=== PATIENT | female | born 1985 | race Caucasian/White ===

== ENCOUNTER → 2019-09-14 08:15 | Outpatient (CLI) | payer OTHER, SELFPAY ==
--- NOTE | ~2019-09-14 | MMUS_ITS ---
EXAMINATION: MM diagnostic olivia RT w lillian, US breast RT limited HISTORY: Palpable lump in the subareolar aspect of the right breast, family history of breast cancer in her mother at age 46. TECHNIQUE: Craniocaudal, mediolateral, and mediolateral oblique 3-D tomosynthesis images of the right breast were performed and synthetic 2-D images were generated. CAD analysis was submitted and interp reted. High resolution limited right breast ultrasound was performed. COMPARISON: 08/28/2017 BREAST PARENCHYMAL COMPOSITION: The breasts are almost entirely fatty. FINDINGS: MAMMOGRAPHIC FINDINGS: There is no evidence of suspicious mass, calcification, or architectural distortion to suggest malig tamar. There has been no suspicious interval change. No mammographic correlate is identified for the reported palpable abnormality of the right breast. ULTRASOUND: There is an 8 mm x 4 mm oval, circumscribed, parallel, hypoechoic mass with posterior acoustic enhanc ement and no internal vascularity associated with the nipple corresponding to the palpable abnormalit y of concern. IMPRESSION: 1. Likely resolving infection of the nipple corresponding to the palpable abnormality of concern. 2. Recommend follow-up targeted ultrasound in one month to evaluate for change. If persistent or enla rging at that time, would recommend ultrasound-guided biopsy. If resolved or absent, would then recom mend screening mammography beginning at age 37 due to her mother's history of breast cancer. BI-RADS category 4, suspicious findings. Reviewed, dictated and finalized at location A. IMPRESSION: 1. Likely resolving infection of the nipple corresponding to the palpable abnor mality of concern. 2. Recommend follow-up targeted ultrasound in one month to evaluate for change. If persistent or enlarging at that time, would recommend ultrasound-guided bio psy. If resolved or absent, would then recommend screening mammography beginnin g at age 37 due to her mother's history of breast cancer. BI-RADS category 4, suspicious findings. IMPRESSION: 1. Likely resolving infection of the nipple corresponding to the palpable abnor mality of concern. 2. Recommend follow-up targeted ultrasound in one month to evaluate for change. If persistent or enlarging at that time, would recommend ultrasound-guided bio psy. If resolved or absent, would then recommend screening mammography beginnin adi at age 37 due to her mother's history of breast cancer. BI-RADS category 4, suspicious findings.
== END ==
PROVIDERS: PCP Nurse Practitioner Adult Health; Visit Provider Obstetrics & Gynecology
DX: N63.10 Unspecified lump in the right breast, unspecified quadrant (principal); R92.8 Other abnormal and inconclusive findings on diagnostic imaging of breast
CPT/HCPCS: 76642; 77061; 77065; G0279

== ENCOUNTER → 2019-10-17 08:31 | Outpatient (CLI) | payer OTHER, SELFPAY ==
--- NOTE | ~2019-10-17 | US_ITS ---
US breast RT limited 10/17/2019 08:50 Indication: History of recent right breast infection. Follow-up mass. Procedure: High-resolution Limited ultrasound of the right breast Comparison: Ultrasound dated 09/14/2019 Findings: Interval resolution of hypoechoic 8mm mass of the right breast in the subareolar location. There is mildly prominent ducts. Impression: 1: Interval resolution of oval hypoechoic 8 mm right breast mass, consistent with resolution of infec tion. No persistent sonographic abnormalities. BI-RADS CATEGORY 1 - NEGATIVE Reviewed, dictated and finalized at location A. Impression: 1: Interval resolution of oval hypoechoic 8 mm right breast mass, consistent wi th resolution of infection. No persistent sonographic abnormalities. BI-RADS CATEGORY 1 - NEGATIVE
== END ==
PROVIDERS: Visit Provider Obstetrics & Gynecology
DX: N63.10 Unspecified lump in the right breast, unspecified quadrant (principal)
CPT/HCPCS: 76642

== ENCOUNTER 2020-06-14 18:29 | Emergency (ER) | payer OTHER, SELFPAY ==
[2020-06-14 18:57] VITALS: BP 147/83; PULSE 79; RESP 17; TEMP 36.2; O2SAT 100
[2020-06-14] MEDS: DOXYCYCLINE HYCLATE 100 MG TABLET PO (20:03)
--- NOTE | 2020-06-14 20:31 | ED.GENADULT ---
HPI - General Adult General Chief complaint: Skin/Abscess/Foreign Body Stated complaint: boil lower abd Time Seen by Provider: 06/14/20 18:34 Source: patient Mode of arrival: ambulatory Limitations: no limitations History of Present Illness HPI narrative: Patient is a 34-year-old female who presents to emergency department for evaluation of abscess to the left lower abdomen patient notes history of staph infections and abscesses she states this began Thursday that the abscess drained significant amount of drainage but now has surrounding erythema patient notes aching pain worse with touch denies any fever chills nausea vomiting Related Data Home Medications Medication Instructions Recorded Confirmed atorvastatin 10 mg tablet 10 mg PO DAILY 01/26/19 01/30/20 lisinopril 20 mg tablet 20 mg PO DAILY 01/26/19 01/30/20 multivitamin 1 tablet PO DAILY 01/26/19 01/30/20 norethindrone (contraceptive) 0.35 0.35 mg PO DAILY 01/26/19 01/30/20 mg tablet omeprazole 20 mg capsule,delayed 20 mg PO DAILY 01/26/19 01/30/20 release Bifidobacterium infantis 4 mg 4 mg PO DAILY 01/31/19 01/30/20 capsule cranberry 400 mg capsule 400 mg PO DAILY 01/30/20 01/30/20 Allergies Allergy/AdvReac Type Severity Reaction Status Date / Time Penicillins Allergy Unknown Swelling Verified 01/30/20 09:59 Review of Systems Review of Systems: All systems reviewed & are unremarkable except as noted in HPI and below PMFSH Past Medical History Medical History 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 Body mass index (BMI) 45.0-49.9, adult (01/20/18) Essential hypertension Former smoker Gastroesophageal reflux disease Ground glass opacity present on imaging of lung Pleurisy Family History Family History Father Diabetes mellitus Cerebrovascular accident Grandparent Family history of lung cancer Mother Family history of malignant neoplasm of breast Social History Social History Years smoked: 16 Smoking status: Former smoker Tobacco type: cigarettes Second hand tobacco smoke exposure: No Smoking end date: 03/09/17 Alcohol intake: never Substance use: never Gender identity (if verbalized by the patient): Female Exam Narrative: Exam Narrative: GENERAL: Well-appearing, obese, and in no acute distress. HEAD: Normocephalic, atraumatic. EYES: PERRLA and EOMI. ENT: Nares clear, no rhinorrhea or epistaxis. Mucous membranes moist. CHEST: Clear to auscultation. No respiratory distress. No wheezes rales or rhonchi HEART: Regular rate and rhythm. No murmur heard. Normal peripheral pulses. ABDOMEN: Soft, nontender, nondistended EXTREMITIES: Normal range of motion. No edema. SKIN: Warm, dry, no rash. Patient with red tender erythematous area to the left lower abdomen there is a central opening no drainage coming from the lesion other than a small amount of purulence the lesion does not have a large underlying fluctuant palpable mass. NEURO: No focal deficits. Alert and oriented x3. PSYCH: Normal mood and affect. Course Course Emergency Course: Patient in the room no distress felt appropriate for outpatient reevaluation and wound culture obtained patient will douglas the lesion to watch for progression or improvement patient is afebrile nontoxic-appearing no distress. Patient agrees to follow with primary care and has been given reasons to return and agrees to do so if symptoms worsen. It is felt that the abscess is drained and she now is experiencing cellulitis was given her first dose of antibiotic in the emergency department Vital Signs Vital signs: Vital Signs Temperature 97.2 F L 06/14/20 18:57 Pulse Rate 79 06/14/20 18:57 Respiratory Rate 17 06/14/20 18:57 Blood Pressure 147/83 H 06/14/20 18:57 Pulse Oximetry 100 06/14/20 18:57 Temperature 97.
[2020-06-14 20:45] VITALS: BP 134/74; PULSE 74; RESP 16; O2SAT 100
== END 2020-06-14 20:45 | disposition home or self-care (01) ==
PROVIDERS: Emergency Provider Emergency Medicine; PCP Nurse Practitioner Adult Health
DX: L02.211 Cutaneous abscess of abdominal wall (principal); K22.70 Barrett's esophagus without dysplasia; I10 Essential (primary) hypertension; K21.9 Gastro-esophageal reflux disease without esophagitis; Z87.891 Personal history of nicotine dependence
CPT/HCPCS: 87070; 87075; 87205; 99283; A9270

== ENCOUNTER 2020-10-22 07:36 | Emergency (ER) | payer OTHER, SELFPAY ==
--- NOTE | ~2020-10-22 | CT_ITS ---
EXAMINATION: CT brain wo con DATE: 10/22/2020 08:23 INDICATION: Headache. TECHNIQUE: Computed tomography (CT) of the head was performed without intravenous contrast. The mA wa s adjusted according to patient size. Iterative reconstruction technique was employed. The dose-lengt h product was 605.33 mGy-cm. COMPARISON: None FINDINGS: There is no intracranial hemorrhage, acute infarction, or abnormal intracranial mass lesion . The ventricles are normal in size. The paranasal sinuses are clear. The orbits are normal. The mast oid air cells are normal. IMPRESSION: 1. Normal brain. Reviewed, dictated and finalized at location B. IMPRESSION: 1. Normal brain.
[2020-10-22 07:40] VITALS: BP 147/90; PULSE 80; RESP 16; TEMP 36.7; O2SAT 99
[2020-10-22] MEDS: KETOROLAC 30 MG/ML VIAL (*BKC) IV PUSH (08:29)
[2020-10-22] MEDS: METOCLOPRAMIDE HCL INJ 10 MG/2 ML VIAL IV PUSH (08:29)
[2020-10-22] MEDS: diphenhydrAMINE HCl INJ 50 MG/ML VIAL 25 MG IV PUSH (08:29)
--- NOTE | 2020-10-22 09:44 | ED.HA ---
HPI - Headache General Chief Complaint: Headache Stated Complaint: HIGH BLOOD PRESSURE Time Seen by Provider: 10/22/20 07:50 Source: patient and family Mode of arrival: ambulatory Limitations: no limitations History of Present Illness HPI Narrative: Patient is 35 years old white female came to the emergency room with her father because of left side headache, dull aching, started 2 to 3 weeks ago. Lately noticed that her blood pressure is high. Patient was seen her family physician 3 days ago and losartan increased from 25 mg once a day to 50 mg once a day. Patient started on phentermine for weight loss 3 months ago, her brother 4 weeks ago. Severely stressed and depressed. Patient been using Excedrin and Tylenol. Patient report the headache comes and goes but more coming down going. Patient denies any fever, chills, coughing, chest pain or shortness of breath. Patient got nauseated last night. Patient is not vaccinated for COVID-19. Patient denies any focal neuro deficit Related Data Home Medications Medication Instructions Recorded Confirmed Bifidobacterium infantis [Align] 10/22/20 atorvastatin 10 mg PO DAILY 10/22/20 fluticasone propion-salmeterol 2 puff INHALATION BID 10/22/20 [Advair HFA] losartan 25 mg PO DAILY 10/22/20 nrbiohorosff-ovnc-kfjhx acid tablet PO 10/22/20 [Centrum] norgestimate-ethinyl estradiol 1 tablet PO DAILY 10/22/20 [Armida] omeprazole 40 mg PO DAILY 10/22/20 phentermine 37.5 mg PO DAILY 10/22/20 vitamin B complex [B Complex] cap 10/22/20 Allergies Allergy/AdvReac Type Severity Reaction Status Date / Time Penicillins Allergy Unknown Swelling Verified 10/22/20 07:48 Review of Systems Review of Systems: CONSTITUTIONAL: Denies fever, chills, or sweats. EYES: Denies visual changes, redness, or discharge. ENT: Denies rhinorrhea, congestion, sore throat, or otalgia. CARDIOVASCULAR: Denies chest pain, palpitations, or edema. RESPIRATORY: Denies cough or dyspnea. GASTROINTESTINAL: Denies abdominal pain, nausea, vomiting, or diarrhea. GENITOURINARY: Denies dysuria or hematuria. SKIN: Denies rash or itching. MUSCULOSKELETAL: Denies back pain, joint pain, or myalgia. NEUROLOGIC: Denies headache, numbness, or weakness. PSYCHIATRIC: Denies anxiety or depression. 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 Body mass index (BMI) 45.0-49.9, adult (01/20/18) Essential hypertension Former smoker Gastroesophageal reflux disease Ground glass opacity present on imaging of lung Pleurisy Family History Family History Father Diabetes mellitus Cerebrovascular accident Grandparent Family history of lung cancer Mother Family history of malignant neoplasm of breast Social History Social History Years smoked: 16 Smoking status: Former smoker Tobacco type: cigarettes Second hand tobacco smoke exposure: No Smoking end date: 03/09/17 Alcohol intake: never Substance use: never Gender identity (if verbalized by the patient): Female Exam Narrative: General appearance: Well-developed, well-nourished Skin: Normal color Head: Normocephalic, nontraumatic Eyes: Clear conjunctiva ENT: Oropharynx normal, ears normal, nose normal Neck: Supple, nontender Chest and respiratory: Airway patent, no respiratory distress, no accessory muscle use Heart: Regular rate/rhythm Abdomen: Soft, nontender, no organomegaly, quiet bowel sounds Vascular: Normal peripheral pulses, normal capillary refill. Musculoskeletal: Normal range of motion, nontender back Neurologic: Alert and oriented ?3, [employer] is normal as tested, no gross motor deficit
[2020-10-22] MEDS: LORazepam INJ (*CRX) 2 MG/ML VIAL 0.5 MG IV PUSH (09:54)
[2020-10-22 10:34] LABS: Add Urine Microscopic? YES; Appearance Urine Clear (Clear); Bilirubin Urine Negative (Negative); Blood Urine 1+ (Negative); Color Urine Yellow (Yellow); Glucose Urine UA Negative (Negative); Ketones Urine Negative (Negative); Leukocyte Esterase Ur Negative LEU/UL (Negative); Mucus Urine Rare /lpf; Nitrate Urine Negative (Negative); Protein Urine Negative (Negative); RBC Urine 0-2 /hpf (0-2); Specific Grav Ur 1.005 (1.001-1.035); Squamous Epithelial Cell Urine Rare /hpf (Few); Urobilinogen Urine Negative mg/dL (<2.0); WBC Urine 0-3 /hpf
[2020-10-22 11:37] VITALS: BP 144/68; PULSE 88; RESP 16; O2SAT 100
== END 2020-10-22 11:39 | disposition home or self-care (01) ==
PROVIDERS: Emergency Provider Emergency Medicine; PCP Nurse Practitioner Adult Health
DX: R51.9 Headache, unspecified (principal); K22.70 Barrett's esophagus without dysplasia; I10 Essential (primary) hypertension; K21.9 Gastro-esophageal reflux disease without esophagitis; Z87.891 Personal history of nicotine dependence
CPT/HCPCS: 70450; 81001; 81025; 96374; 96375; 99284; J1200; J1885; J2060; J2765

== ENCOUNTER 2020-11-07 07:26 | Emergency (ER) | payer OTHER, SELFPAY ==
--- NOTE | ~2020-11-07 | US_ITS ---
EXAMINATION: US venous doppler LE RT DATE: 11/07/2020 08:37 INDICATION: Right calf pain TECHNIQUE: Grayscale ultrasound images without and with compression and Doppler ultrasound images of the right lower extremity veins were obtained. COMPARISON: None. FINDINGS: Noncompressible deep venous spondylosis in the mid portion of one of the paired right peroneal veins. The visualized portions of right common femoral vein, profunda (deep) femoral vein, femoral vein, po pliteal vein, peroneal trunk, posterior tibial veins, peroneal veins, gastrocnemius vein and greater saphenous vein outflow are patent. IMPRESSION: 1. Right sided rnqkj-tev-xtlg deep venous thrombosis in the midportion of one of the paired right pe roneal veins. Reviewed, dictated and finalized at location A. IMPRESSION: 1. Right sided omdkr-ftq-sbdh deep venous thrombosis in the midportion of one of the paired right peroneal veins.
[2020-11-07 07:35] VITALS: BP 156/103; PULSE 102; RESP 16; TEMP 36.7; O2SAT 98
--- NOTE | 2020-11-07 08:04 | ED.EXTPRO ---
HPI - Extremity Problem General Chief complaint: Extremity Problem,Nontraumatic Stated complaint: R calf pain ,R ankle swelling Time Seen by Provider: 11/07/20 07:34 Source: patient Mode of arrival: ambulatory Limitations: no limitations History of Present Illness HPI Narrative: Patient is a 35-year-old female complaining of right calf pain, aching, 4 out of 10, nonradiating started 1 week ago. Patient denies any injury to her leg. Patient denies any chest pain, shortness of breath, fever or chills. Related Data Home Medications Medication Instructions Recorded Confirmed Bifidobacterium infantis [Align] 10/22/20 atorvastatin 10 mg PO DAILY 10/22/20 fluticasone propion-salmeterol 2 puff INHALATION BID 10/22/20 [Advair HFA] losartan 50 mg PO DAILY 10/22/20 clguzhrapwep-xeew-qguug acid tablet PO 10/22/20 [Centrum] norgestimate-ethinyl estradiol 1 tablet PO DAILY 10/22/20 [Armida] omeprazole 40 mg PO DAILY 10/22/20 vitamin B complex [B Complex] cap 10/22/20 hydralazine 11/07/20 Allergies Allergy/AdvReac Type Severity Reaction Status Date / Time Penicillins Allergy Unknown Swelling Verified 10/22/20 07:48 Review of Systems Review of Systems: All systems reviewed & are unremarkable except as noted in HPI and below Constitutional: Constitutional: Denies body ache(s), Denies chills, Denies excessive sweating, Denies fatigue, Denies fever(s), Denies headache(s), Denies lethargy, Denies malaise, Denies weakness and Denies weight loss Eyes: Eyes: Denies blurry vision, Denies change in vision and Denies loss of vision ENT: Denies dizziness, Denies ear discharge, Denies headache(s), Denies lip swelling, Denies epistaxis, Denies nasal congestion, Denies neck pain, Denies throat swelling and Denies tongue swelling Cardiovascular: Cardiovascular: Denies chest pain, Denies chest pain at rest, Denies chest pain with activity, Denies diaphoresis, Denies rapid heart rate, Denies edema, Denies irregular heart rhythm, Denies lightheadedness, Denies palpitations, Denies dyspnea and Denies dyspnea on exertion Respiratory: Respiratory: Denies chest congestion, Denies cough, Denies hemoptysis, Denies dyspnea and Denies dyspnea on exertion Gastrointestinal: Gastrointestinal: Denies abdominal pain, Denies melena, Denies hematochezia, Denies diarrhea, Denies nausea, Denies vomiting and Denies hematemesis Musculoskeletal: Musculoskeletal: Denies abnormal gait, Denies deformity, Denies joint swelling, Denies limited range of motion, Denies neck pain and Denies numbness Neurologic: Denies Abnormal speech present, Denies abnormal gait, Denies confusion, Denies dizziness, Denies headache(s), Denies focal weakness, Denies loss of vision, Denies numbness, Denies Other visual disturbances, Denies Sensory deficit (Neuro) and Denies weakness Psychiatric: Psychiatric: Denies confusion, Denies depression, Denies auditory hallucinations, Denies homicidal ideation and Denies suicidal ideation Endocrine: Endocrine: Denies cold intolerance, Denies excessive sweating, Denies fatigue, Denies heat intolerance and Denies palpitations Hematologic/Lymphatic: Hematologic/Lymphatic: Denies easy bleeding and Denies easy bruising Allergic/Immunologic: Allergic/Immunologic: Denies lip swelling, Denies throat swelling and Denies tongue swelling PMFSH Past Medical History Medical History 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
[2020-11-07 10:21] VITALS: BP 136/87; PULSE 79; RESP 16; O2SAT 99
[2020-11-07 10:30] LABS: Basophils Percent Auto 0.3 % (0.2-1.2); Eosinophils Absolute Auto 0.2 K/mm3 (0-0.3); Eosinophils Percent Auto 1.5 % (0-4.4); Hemoglobin 14.3 g/dL (12.0-15.0); Immature Granulocyte Absolute 0.04 K/mm3 (0.00-0.031); Immature Granulocyte Percent A 0.4 % (0-0.5); Lymphocytes Absolute Auto 3.18 K/mm3 (0.9-3.2); Lymphocytes Percent Auto 30.2 % (18.3-44.2); Mean Corpuscular HGB Conc 32.5 g/dl (32-36); Mean Corpuscular Hemoglobin 29.1 pg (26-34); Mean Corpuscular Volume 89.4 fl (80-100); Mean Platelet Volume 8.8 fl (7.4-10.4); Monocytes Absolute Auto 0.5 K/mm3 (0.1-0.6); Monocytes Percent Auto 4.7 % (2.6-8.5); Neutrophils Absolute Auto 6.6 K/mm3 (1.3-6.7); Neutrophils Percent Auto 62.9 % (45.5-73.1); Platelet Count Result 330 k/mm3 (150-375); Red Blood Count 4.92 M/mm3 (4.2-5.4); Red Cell Distribution Width 13.1 % (11.5-14.5); White Blood Count 10.5 K/mm3 (4.5-10.0)
[2020-11-07 10:40] LABS: Anion Gap 11 mmol/L (8-16); Blood Urea Nitrogen 9 mg/dL (7-17); Calcium 9.1 mg/dL (8.4-10.2); Carbon Dioxide 24 mmol/L (22-30); Chloride 104 mmol/L (98-107); Estimated CRCL calculation 140 ml/min; Estimated Glomerular Filt Rate > 60; Glucose 88 mg/dL (65-110); Potassium 3.9 mmol/L (3.4-5.0); Sodium 139 mmol/L (137-145)
[2020-11-07 10:41] LABS: INR 0.9; Partial Thromboplastin Time 27.7 SECONDS (22.3-36.8); Prothrombin Time 11.6 Seconds (11.1-14.7)
== END 2020-11-07 11:15 | disposition home or self-care (01) ==
PROVIDERS: Emergency Provider Emergency Medicine; PCP Nurse Practitioner Adult Health
DX: I82.401 Acute embolism and thrombosis of unspecified deep veins of right lower extremity (principal); Z87.891 Personal history of nicotine dependence; K21.9 Gastro-esophageal reflux disease without esophagitis
CPT/HCPCS: 36415; 80048; 81025; 85025; 85610; 85730; 93971; 99284

== ENCOUNTER → 2020-11-23 13:07 | Outpatient (CLI) | payer OTHER, SELFPAY ==
--- NOTE | ~2020-11-23 | US_ITS ---
EXAMINATION: US retroperitoneal limited DATE: 11/26/2020 08:57 CDT INDICATION: Accelerated hypertension. TECHNIQUE: Sonographic imaging of the kidneys was performed with a 3.5 MHz transducer. Retroperitone al duplex sonogram of the renal arteries also obtained. FINDINGS: No focal flow abnormalities are seen in the renal arteries on color Doppler. The peak syst olic velocities at the origin of the right and left renal arteries and aorta are 96 cm per second, 97 cm per second, and cm per second, respectively. The velocities and renal to aortic ratios are within normal limits. 119 IMPRESSION: 1. No Doppler evidence of renal artery stenosis. Reviewed, dictated and finalized at location A.
== END ==
PROVIDERS: PCP Nurse Practitioner Adult Health; Visit Provider Nurse Practitioner Adult Health
DX: I10 Essential (primary) hypertension (principal)
CPT/HCPCS: 76775

== ENCOUNTER → 2022-11-13 08:06 | Outpatient (CLI) | payer OTHER, SELFPAY ==
--- NOTE | ~2022-11-13 | US_ITS ---
Limited Abdominal Sonogram: Real-time sonographic imaging of the right upper quadrant was performed. Clinical History: Right upper quadrant pain Findings: The liver appears normal with no evidence of mass lesion or bile duct dilatation. Main por terrence vein demonstrates normal direction of flow. The gallbladder is well distended, and appears normal with no evidence of gallstone or wall thickening. The common bile duct measures 5 mm. The visualize d pancreas, aorta, and IVC are unremarkable. Right kidney measures 13 cm in length, without evidence for hydronephrosis. Impression: No significant abnormality seen. Reviewed, dictated and finalized at location . Impression: No significant abnormality seen.
== END ==
PROVIDERS: PCP Nurse Practitioner Family; Visit Provider Nurse Practitioner Family
DX: R10.11 Right upper quadrant pain (principal)
CPT/HCPCS: 76705

== ENCOUNTER → 2022-11-21 15:16 | Outpatient (CLI) | payer OTHER, SELFPAY ==
--- NOTE | ~2022-11-21 | MM_ITS ---
EXAMINATION: MM screening [facility] BI w lillian HISTORY: Screening mammogram TECHNIQUE: Craniocaudal and mediolateral oblique 3-D tomosynthesis images were obtained and synthetic 2-D images were generated. CAD analysis was submitted and interpreted. COMPARISON: 10/17/2019 limited right breast ultrasound examination 09/14/2019 diagnostic right mammogram and limited right breast ultrasound 10/07/2017 MRI breast examination, reported negative 08/28/2017 diagnostic bilateral mammogram and right breast ultrasound examination BREAST PARENCHYMAL COMPOSITION: The breasts are almost entirely fatty. FINDINGS: There is no evidence of suspicious mass, calcification, or architectural distortion to sugg est malignancy in either breast. There has been no suspicious interval change. IMPRESSION: 1. No mammographic evidence of malignancy. 2. Recommend routine screening mammography in one year. BI-RADS Category 1: Negative Reviewed, dictated and finalized at location A.
== END ==
PROVIDERS: PCP Obstetrics & Gynecology; Visit Provider Nurse Practitioner Family
DX: Z12.31 Encounter for screening mammogram for malignant neoplasm of breast (principal)
CPT/HCPCS: 77063; 77067

== ENCOUNTER 2023-09-24 01:52 | Day surgery (SDC) | payer OTHER, SELFPAY ==
[2023-09-16 10:58] VITALS: BMI 52.6
--- NOTE | 2023-09-16 12:41 | SUR.PREOP ---
Report to the Outpatient Waiting Room, entrance under the green pavilion located off [facility], at time 0600 on date 09/24/23. Planned Procedure Time: 0730. Time changes happen often and if your time is changed the preop area will call you the afternoon before. - You and your visitor will be asked to self-screen and do not enter if you have any COVID symptoms. - A mask is optional within the hospital at this time. Patients may have clear liquids (water, carbonated beverages, clear teas, apple juice) until 3 hours prior to surgery with a maximum of 20 ounces. - No food from midnight until time of surgery - Infants may have breast milk until 4 hours before surgery, formula 6 hours prior to surgery. - Children will be allowed to drink immediately following surgery. If applicable, please bring a bottle or sippy cup to assist with drinking. Juice, water, soda, and popsicles are readily available. For infants on formula, please bring formula the day of surgery. Pacifiers are allowed. Take the following medications with a SIP of water the morning of surgery: ___no morning meds___ DO NOT STOP ANY OF YOUR OTHER PRESCRIPTION MEDICATIONS PRIOR TO SURGERY ?EXCEPT THE FOLLOWING Medications to discontinue per physician hold losartan, hydralazine and furosemide morning of surgery. hold supplements and vitamins 3 days prior to surgery. Date to take last dose Please no make-up, nail wolof, hairspray, perfume, deodorant, or body powder the day of surgery. No jewelry (including any body piercings) or valuables the day of surgery, leave them at home. Please take a shower or bath the night before, or the morning of, surgery with an antibacterial soap. Wear comfortable, loose fitting clothing. Children are encouraged to wear pajamas. - Jewelry must be removed prior to entering the operating room. Rings and piercings that are not removed may be cut off. - The hospital will not accept responsibility for valuables. - Please leave all valuables, including medications, at home the day of surgery. If you are going home after surgery, a licensed substitute bus driver must drive you home. - NO public transportation without another adult if you receive anesthesia. - We recommend that an adult stay with you for 24 hours following discharge. - We also recommend that you do not drive, make important decision, drink alcoholic beverages, or take any drugs that were not prescribed by your health care provider for at least 24 hours after your discharge time. For Pediatric surgeries, we recommend two adults accompany the child home. Follow any additional instructions given to you from your surgeon. If you or anyone in your household have experienced Covid symptoms in the past week, please notify your surgeon or the nurse liaison at the phone number below for possible testing. Telephone instructions given to __patient__and asked if any additional questions and then verbalized understanding. Patient advised to call surgeon office or pre surgery nurse liaison [phone] if any additional questions.
--- NOTE | 2023-09-22 17:23 | PM.IMHP ---
H&P: HPI History of Present Illness Date/Time: 09/22/23 17:23 38-year-old female presents for treatment of heavy irregular vaginal bleeding. Cycles lasting 5-7 days with 3-4 days very heavy with clotting and cramping. We discussed multiple treatment options and she does desire to proceed with endometrial ablation. Ultrasound revealed small ovarian cyst but no other significant abnormalities other than mild we enlarged uterus. The has had a vasectomy so tubal ligation is not necessary. Of note patient also has history of DVT and has discussed with her primary care provider adjustments in medications that she takes. 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 Body mass index (BMI) 45.0-49.9, adult (01/20/18) Deep vein blood clot of right lower extremity Discharge from right nipple Essential hypertension Former smoker Gastroesophageal reflux disease Ground glass opacity present on imaging of lung Pleurisy Screening mammogram, encounter for Surgical History Surgical History H/O colonoscopy (~03/09/07) internal hemorrhoids//didn't say if needed to come back H/O colonoscopy (01/26/23) normal History of colposcopy (10/26/07) chronic cervicitis History of colposcopy (05/18/07) Benign History of excision of lesion (07/15/18) vulvar skin tag removal History of gynecological procedure (11/17/18) vaginal wart removal / wart removed from pelvic area 01/07/2015 Family History Family History Father Diabetes mellitus Cerebrovascular accident Grandparent Family history of lung cancer Mother Family history of malignant neoplasm of breast Social History Social History Smoking packs per day: 0.5 Smoking cigarettes per day: 10.0 Years smoked: 20 Smoking pack-years: 10.00 Smoking status: Current every day smoker Tobacco type: cigarettes Second hand tobacco smoke exposure: No Alcohol intake: never Substance use: never Substance use type: does not use Do You Feel Safe in your Home?: Yes Lack of Transportation: No Lack of Food: Never True Current Housing: I Have Housing Concerned About Future Housing: No Difficulty Paying Gas/Electric Bills: No Difficulty Paying for Meds: No Currently Unemployed: No Education: High School Diploma/GED Difficulty w/ Childcare or Family Care: No Living arrangements: with family Additional living arrangements comments: Occupation/Education: occupation Additional occupation/education comments: [employer] Gender identity (if verbalized by the patient): Female Sexual Orientation (if Verbalized by the Patient): Straight or Heterosexual Spiritual care concerns: No Meds Home Medications and Allergies Home Medications Medication Instructions Recorded Confirmed Type Bifidobacterium infantis 4 mg 4 mg PO HS 10/22/20 09/16/23 History capsule (Align) atorvastatin 10 mg tablet 10 mg PO HS 10/22/20 09/16/23 History multivitamin-ferrous 1 tablet PO DAILY 10/22/20 09/16/23 History fumarate-folic acid 18 mg-400 mcg tablet (Centrum) omeprazole 40 mg capsule,delayed 40 mg PO DAILY 10/22/20 09/16/23 History release vitamin B complex 1 cap PO DAILY 10/22/20 09/16/23 History hydralazine 25 mg tablet 25 mg PO BID 11/07/20 09/16/23 History cranberry 400 mg capsule 400 mg PO DAILY 01/29/21 09/16/23 History furosemide 20 mg tablet 0.5 mg PO QAM 01/28/22 09/16/23 History Spiriva Respimat 1.25 2 puff inhalation DAILY #4 grams 10/20/22 09/16/23 Rx mcg/actuation solution for inhalation (tiotropium bromide) alb
--- NOTE | 2023-09-24 07:14 | WPDHPUPDATE1 ---
History and Physical Update Update Date/Time: 09/24/23 07:14 History and Physical has been reviewed, including an updated exam of the patient. There are NO changes in the patient's condition. Risks, benefits, and alternatives have been discussed and questions answered. Patient agrees to proceed with procedure.
[2023-09-24 07:30] VITALS: BP 127/70; PULSE 92; RESP 18; TEMP 36.4; O2SAT 97
[2023-09-24] MEDS: LACTATED RINGERS 1,000 ML 30 ML IV CONT ×2 (07:35→09:40)
[2023-09-24] MEDS: ACETAMINOPHEN 500 MG TABLET 1000 MG PO (07:36)
--- NOTE | 2023-09-24 08:14 | WPDANESEPPF ---
Anes - Initial Pre Proc Eval Procedure: Operation Date: 09/24/23 09:00 Proposed Procedures p Hysteroscopy, Dilation and Curettage, Indigo Endometrial Ablation - Andrew Thompson MD Date/Time: 09/24/23 08:14 Surgeon: Andrew Thompson MD Pre Op Diagnosis: abn uterine bleeding Patient Data Age: 38 Gender: F Height: 1.7 m Weight: 146.7 kg Last Vital Signs Temp 97.6 F 09/24/23 07:30 Pulse 92 09/24/23 07:30 Resp 18 09/24/23 07:30 BP 127/70 09/24/23 07:30 Pulse Ox 97 09/24/23 07:30 O2 Del Method Room Air 09/24/23 07:30 Allergies Allergy/AdvReac Type Severity Reaction Status Date / Time Penicillins Allergy Intermediate Swelling Verified 09/24/23 07:18 cefdinir Allergy Unknown Other Verified 09/24/23 07:18 Home Medications Medication Instructions Recorded Confirmed Type Bifidobacterium infantis 4 mg 4 mg PO HS 10/22/20 09/24/23 History capsule (Align) atorvastatin 10 mg tablet 10 mg PO HS 10/22/20 09/24/23 History multivitamin-ferrous 1 tablet PO DAILY 10/22/20 09/24/23 History fumarate-folic acid 18 mg-400 mcg tablet (Centrum) omeprazole 40 mg capsule,delayed 40 mg PO DAILY 10/22/20 09/24/23 History release vitamin B complex 1 cap PO DAILY 10/22/20 09/24/23 History hydralazine 25 mg tablet 25 mg PO BID 11/07/20 09/24/23 History cranberry 400 mg capsule 400 mg PO DAILY 01/29/21 09/24/23 History furosemide 20 mg tablet 0.5 mg PO QAM 01/28/22 09/24/23 History Spiriva Respimat 1.25 2 puff inhalation DAILY #4 grams 10/20/22 09/24/23 Rx mcg/actuation solution for inhalation (tiotropium bromide) albuterol sulfate 90 mcg/actuation 1 - 2 inh inhalation Q4-6H PRN 05/13/23 09/24/23 Rx aerosol inhaler shortness of breath or wheezing #8.5 grams losartan 50 mg tablet 50 mg PO BID 09/16/23 09/24/23 History Patient hx anesthesia problems: none Family hx anesthesia problems: none Results Review: All pre-operative results and documents have been reviewed as part of the pre-operative evaluation. 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 Body mass index (BMI) 45.0-49.9, adult (01/20/18) Deep vein blood clot of right lower extremity Discharge from right nipple Essential hypertension Former smoker Gastroesophageal reflux disease Ground glass opacity present on imaging of lung Pleurisy Screening mammogram, encounter for Surgical History Surgical History H/O colonoscopy (~03/09/07) internal hemorrhoids//didn't say if needed to come back H/O colonoscopy (01/26/23) normal History of colposcopy (10/26/07) chronic cervicitis History of colposcopy (05/18/07) Benign History of excision of lesion (07/15/18) vulvar skin tag removal History of gynecological procedure (11/17/18) vaginal wart removal / wart removed from pelvic area 01/07/2015 Family History Family History Father Diabetes mellitus Cerebrovascular accident Grandparent Family history of lung cancer Mother Family history of malignant neoplasm of breast Social History Social History Smoking packs per day: 0.5 Smoking cigarettes per day: 10.0 Years smoked: 20 Smoking pack-years: 10.00 Smoking status: Current every day smoker Tobacco type: cigarettes Second hand tobacco smoke exposure: No Alcohol intake: never Substance use: never Substance use type: does not use Do You Feel Safe in your Home?: Yes Lack of Transportation: No Lack of Food: Never True Current Housing: I Have Housing Concerned About Future Housing: No Difficulty Paying Gas/Electric Bills: No Difficulty Paying for Meds: No Currently Unemployed: No Education: High School Diploma/GED Difficulty w/ Childcare or Fam
[2023-09-24] MEDS: ceFAZolin 3 GM/D5W 100 ML 100 ML IVPB (08:56)
[2023-09-24] MEDS: KETOROLAC 15 MG/ML VIAL (*BKC) IV PUSH (09:15)
[2023-09-24 09:40] VITALS: BP 132/75; PULSE 86; RESP 16; O2SAT 98
--- NOTE | 2023-09-24 09:45 | W.PM.PROC2 ---
Procedure Note - Detailed Date of Procedure 09/24/23 Pre-op Diagnosis abn uterine bleeding Left vulvar lesion Post-op Diagnosis Same Procedure Performed 1. Hysteroscopy with uterine curettings 2. Endometrial ablation 3. Removal of left vulvar lesion (1cm) Surgeon Andrew Thompson MD Anesthesia MAC Findings Slightly thickened endometrial cavity Left vulvar lesion Description of Procedure Patient prepped and draped usual manner for this procedure. Cervix was dilated to allow hysteroscope to be placed which revealed findings as noted above. Indigo instrument was then place, cavity assessment performed, and instrument activated. Destruction of the tissue was noted after the procedure. Left vulvar lesion was noted and removed without difficulty. Four interrupted 2-0 chromic sutures were then placed in this rendered incision hemostatic. Patient was sent to recovery room in stable condition Estimated Blood Loss 20 Packing No Pathology Yes Complications No immediate complications Condition Stable Disposition PACU [facility] Billing Surgery - Charge Forward: Surgery Billing
[2023-09-24 10:10] VITALS: BP 136/81; PULSE 86
== END 2023-09-24 10:28 | disposition home or self-care (01) ==
PROVIDERS: PCP Nurse Practitioner Family; Visit Provider Obstetrics & Gynecology
PROC: 0U5B8ZZ Destruction of Endometrium, Via Natural or Artificial Opening Endoscopic (ICD-10-PCS; CPT 58563; principal; 2023-09-24 09:00)
DX: N92.0 Excessive and frequent menstruation with regular cycle (principal); A63.0 Anogenital (venereal) warts; Z86.718 Personal history of other venous thrombosis and embolism; F17.210 Nicotine dependence, cigarettes, uncomplicated; I10 Essential (primary) hypertension; K21.9 Gastro-esophageal reflux disease without esophagitis
CPT/HCPCS: 58563; 11421; 88305; A9270; J0690; J1100; J1885; J2250; J2405; J2704; J3010; J7120

== ENCOUNTER 2023-11-23 15:22 | Outpatient (CLI) | payer OTHER, SELFPAY ==
--- NOTE | ~2023-11-23 | MM_ITS ---
EXAMINATION: MM screening olivia BI w lillian HISTORY: Screening mammogram, family history of breast cancer in her mother. TECHNIQUE: Craniocaudal and mediolateral oblique 3-D tomosynthesis images were obtained and synthetic 2-D images were generated. CAD analysis was submitted and interpreted. COMPARISON: 11/21/2022, 2019, 08/28/2017 BREAST PARENCHYMAL COMPOSITION:Not Dense. The breasts are almost entirely fatty FINDINGS: No suspicious mass, calcification, or architectural distortion are identified in either dre ast to suggest malignancy. There has been no suspicious interval change. IMPRESSION: No mammographic evidence of malignancy. Recommend routine screening mammography in one year. BI-RADS Category 1: Negative Reviewed, dictated and finalized at location .
== END 2023-11-23 15:23 | disposition home or self-care (01) ==
LOC: ANHIMG 15:24
PROVIDERS: PCP Nurse Practitioner Family; Visit Provider Obstetrics & Gynecology
DX: Z12.31 Encounter for screening mammogram for malignant neoplasm of breast (principal)
CPT/HCPCS: 77063; 77067

== ENCOUNTER 2024-11-25 08:16 | Outpatient (CLI) | payer OTHER, SELFPAY ==
--- NOTE | ~2024-11-25 | MM_ITS ---
EXAMINATION: MM screening olivia BI w lillian HISTORY: Screening TECHNIQUE: Craniocaudal and mediolateral oblique 3-D tomosynthesis images were obtained and synthetic 2-D images were generated. CAD analysis was submitted and interpreted. COMPARISON: Comparison to multiple prior studies sequentially, with oldest reviewed study dated , 08/28/2017 BREAST PARENCHYMAL COMPOSITION: The breasts are almost entirely fatty. FINDINGS: There is no evidence of suspicious mass, calcification, or architectural distortion to suggest malignancy in either breast. IMPRESSION: 1. No mammographic evidence of malignancy. 2. Recommend routine screening mammography in one year. BI-RADS Category 1: Negative Reviewed, dictated and finalized at location B.
== END 2024-11-25 08:17 | disposition home or self-care (01) ==
LOC: ANHFOHIMG 08:18
PROVIDERS: PCP Nurse Practitioner Family; Visit Provider Obstetrics & Gynecology
DX: Z12.31 Encounter for screening mammogram for malignant neoplasm of breast (principal)
CPT/HCPCS: 77063; 77067